=== PATIENT | female | born 1965 | race Caucasian/White ===

== ENCOUNTER 2021-01-03 10:28 | Day surgery (SDC) | payer BC ==
[2021-01-01 15:42] VITALS: BMI 23.6
[2021-01-03] MEDS ORDERED: EPINEPHrine/PF 1 MG/1 ML (1:1,000) AMPULE ONE (11:30)
[2021-01-03] MEDS ORDERED: ceFAZolin SODIUM 1 GM VIAL ONE (11:30)
[2021-01-03] MEDS ORDERED: LIDOCAINE 1%/EPI 1:100000 (20 ML MULTI DOSE VIAL) ONE (11:31)
[2021-01-03] MEDS ORDERED: GENTAMICIN SO4 80 MG/2 ML VIAL ONE (11:31)
[2021-01-03] MEDS ORDERED: LIDOCAINE HCL 1%, 10 MG/ML (20ML VIAL) ONE (11:31)
[2021-01-03] MEDS ORDERED: PROMETHAZINE HCL 25 MG/1 ML VIAL IVPUSH PRN (12:24)
[2021-01-03] MEDS ORDERED: PROPOFOL 20 ML ONE ×6 (12:33→14:19)
[2021-01-03] MEDS ORDERED: MIDAZOLAM HCL 2 MG/2 ML SINGLE DOSE VIAL ONE (12:37)
[2021-01-03] MEDS ORDERED: SCOPOLAMINE HYDROBROMIDE 1 PATCH PATCH.TD72 ONE (12:44)
[2021-01-03] MEDS ORDERED: ACETAMINOPHEN INJECTION 100 ML IVPB ONE (13:04)
[2021-01-03] MEDS ORDERED: LIDOCAINE 1%/EPI 1:100000 (50 ML MULTI DOSE VIAL) NR ONE (13:18)
[2021-01-03] MEDS ORDERED: oxyCODONE HCL 5 MG TABLET PO PRN (15:09)
[2021-01-03 16:15] VITALS: TEMP 97.5
[2021-01-03 17:12] VITALS: BP 138/85; PULSE 72
== END 2021-01-03 17:15 | disposition home or self-care (01) ==
LOC: FASU 10:28
PROVIDERS: ATTEND Plastic Surgery
PROC: 0HRV0JZ Replacement of Bilateral Breast with Synthetic Substitute, Open Approach (ICD-10-PCS; 2021-01-03)
PROC: 0HPU0JZ Removal of Synthetic Substitute from Left Breast, Open Approach (ICD-10-PCS; principal; 2021-01-03 12:00)
PROC: 0HPT0JZ Removal of Synthetic Substitute from Right Breast, Open Approach (ICD-10-PCS; 2021-01-03 12:00)
DX: M95.4 Acquired deformity of chest and rib (principal); Z90.13 Acquired absence of bilateral breasts and nipples; Z85.3 Personal history of malignant neoplasm of breast; N65.1 Disproportion of reconstructed breast; T85.42XA Displacement of breast prosthesis and implant, initial encounter; Y82.8 Other medical devices associated with adverse incidents; Y92.9 Unspecified place or not applicable
CPT/HCPCS: 19342; 19380; L8600; 88305-TC; 94760; J0131